=== PATIENT | male | born 1965 | race Caucasian/White ===

== ENCOUNTER 2017-02-17 08:12 | Emergency (ER) | payer OTHER ==
--- NOTE | 2017-02-17 11:36 | ED ---
Psych HPI - General Chief Complaint: Psychiatric Symptoms Stated Complaint: suicidal Time Seen by Provider: 02/17/17 08:19 Source: patient Mode of arrival: ambulatory - History of Present Illness Initial Comments: Patient presents to the emergency department with psychiatric disorder. He states that he has depression. He was thinking of harming himself. He denies any fever, chills, chest pain or shortness of breath. He has no belly or back pain. He has no nausea or vomiting. He has no focal weakness or trouble walking. He is tolerating oral intate. - Related Data Home Medications Medication Instructions Recorded Confirmed ARIPiprazole [Abilify] 15 mg PO HS 02/17/17 02/17/17 Atorvastatin [Lipitor] 20 mg PO HS 02/17/17 02/17/17 Loratadine [Claritin] 10 mg PO DAILY 02/17/17 02/17/17 Melatonin 3 mg PO HS PRN 02/17/17 02/17/17 amLODIPine [Norvasc] 5 mg PO DAILY 02/17/17 02/17/17 buPROPion HCL [Wellbutrin XL] 300 mg PO DAILY 02/17/17 02/17/17 traZODone HCL [Desyrel] 100 mg PO HS 02/17/17 02/17/17 Allergies Allergy/AdvReac Type Severity Reaction Status Date / Time corn Allergy Itching Verified 02/17/17 08:44 Review of Systems ROS Statement: Those systems with pertinent positive or pertinent negative responses have been documented in the HPI. ROS Other: All systems not noted in ROS Statement are negative. Past Medical History Past Medical History: Hyperlipidemia, Hypertension History of Any Multi-Drug Resistant Organisms: None Reported Additional Past Surgical History / Comment(s): eye Past Psychological History: Anxiety, Bipolar, Depression Smoking Status: Never smoker Past Alcohol Use History: None Reported Past Drug Use History: None Reported General Exam Limitations: no limitations General appearance: alert, in no apparent distress Head exam: Present: atraumatic, normocephalic, normal inspection Eye exam: Present: normal appearance, PERRL, EOMI. Absent: scleral icterus, conjunctival injection, periorbital swelling ENT exam: Present: normal exam, mucous membranes moist Neck exam: Present: normal inspection. Absent: tenderness, meningismus, lymphadenopathy Respiratory exam: Present: normal lung sounds bilaterally. Absent: respiratory distress, wheezes, rales, rhonchi, stridor Cardiovascular Exam: Present: regular rate, normal rhythm, normal heart sounds. Absent: systolic murmur, diastolic murmur, rubs, gallop, clicks GI/Abdominal exam: Present: soft, normal bowel sounds. Absent: distended, tenderness, guarding, rebound, rigid Extremities exam: Present: normal inspection, full ROM, normal capillary refill. Absent: tenderness, pedal edema, joint swelling, calf tenderness Back exam: Present: normal inspection Neurological exam: Present: alert, oriented X3, CN II-XII intact Psychiatric exam: Present: normal affect, normal mood Skin exam: Present: warm, dry, intact, normal color. Absent: rash Course Vital Signs 02/17/17 08:15 Temperature 98.4 F Pulse Rate 92 Respiratory 18 Rate Blood Pressure 145/76 O2 Sat by Pulse 98 Oximetry Medical Decision Making - Medical Decision Making Patient presents with psychiatric disorder. He is not intoxicated. He has no somatic complaints. He was about a by psychiatry. They have formulated an outpatient plan. He is stable for discharge. - Lab Data Lab Results 02/17/17 Range/Units 10:24 Urine Opiates Screen Not Detected (NotDetected) Ur Oxycodone Screen Not Detected (NotDetected) Urine Methadone Screen Not Detected (NotDetected) Ur Propoxyphene Screen Not Detected (NotDetected) Ur Barbiturates Screen Not Detected (NotDetected) U Tricyclic Antidepress Not Detected (NotDetected) Ur Phencyclidine Scrn Not Detected (NotDetected) Ur Amphetamines Screen Not Detected (NotDetected) U Methamphetamines Scrn Not Detected (NotDetected) U Benzodiazepines Scrn Not Detected (NotDetected) Urine Cocaine Screen Not Detected (NotDetected) U Marijuana (THC) Screen Not Detected (NotDetected) Disposition Clinical Impression: Depression Disposition: HOME SELF-CARE Condition: Good Instructions: Depression (ED) Referrals: Kane Bolivar MD [Primary Care Provider] - 1-2 days
[2017-02-17 11:44] VITALS: BP 141/102; PULSE 68; RESP 17; TEMP 98
== END 2017-02-17 11:50 | disposition home or self-care (01) ==
LOC: EC 08:12
DX: F31.9 Bipolar disorder, unspecified (principal); R45.851 Suicidal ideations; E78.5 Hyperlipidemia, unspecified; I10 Essential (primary) hypertension; F41.9 Anxiety disorder, unspecified; Z79.899 Other long term (current) drug therapy; Z91.018 Allergy to other foods
CPT/HCPCS: 80306; 82075; 99284